=== PATIENT | female | born 1975 | race African-American/Black ===

== ENCOUNTER 2022-12-05 06:34 | Emergency (ER) | payer MEDICAID ==
[~2022-12-05] VITALS: Ht 175.3 cm; Wt 88.5 kg
[2022-12-05 06:36] VITALS: BP 170/116
[2022-12-05] MEDS ORDERED: KETOROLAC 60MG/2ML VIAL IM ONE (09:15)
[2022-12-05] MEDS ORDERED: P50 MT (11:10)
[2022-12-05] MEDS ORDERED: IBUP-2029 MT (11:10)
== END 2022-12-05 11:25 | disposition home or self-care (01) ==
LOC: ER 06:34
DX: J02.9 Acute pharyngitis, unspecified (principal); J06.9 Acute upper respiratory infection, unspecified; B00.1 Herpesviral vesicular dermatitis; I10 Essential (primary) hypertension; Z20.822 Contact with and (suspected) exposure to COVID-19; Z98.890 Other specified postprocedural states
CPT/HCPCS: 71045; 87070; 87426; 87430; 87804; 96372; 99284; C9803; J1885

== ENCOUNTER 2024-02-01 19:14 | Emergency (ER) | payer SELFPAY ==
[~2024-02-01] VITALS: Ht 175.3 cm; Wt 78.0 kg
[~2024-02-01 19:14] MED LIST: IBUP-2029 MT; P50 MT
[2024-02-01 19:16] VITALS: PULSE 86
[2024-02-01 19:27] VITALS: BP 124/94; RESP 20; TEMP 97.8; O2SAT 98
[2024-02-01] MEDS ORDERED: KETO5DRO73 LEFTEYE (20:19)
[2024-02-01] MEDS ORDERED: DIPH25TA62 MT (20:20)
[2024-02-01] MEDS: TETRACAINE 0.5% OPHTH DROPS 4ML LEFTEYE ONE (20:40)
[2024-02-01] MEDS: FLUORESCEIN SODIUM 1MG/STRIP LEFTEYE ONE (20:40)
== END 2024-02-01 20:46 | disposition home or self-care (01) ==
LOC: ER 19:14
DX: R21 Rash and other nonspecific skin eruption (principal)
CPT/HCPCS: 99283

== ENCOUNTER 2024-11-29 09:04 | Emergency (ER) | payer MEDICAID ==
[~2024-11-29] VITALS: Ht 175.3 cm; Wt 98.0 kg
[~2024-11-29 09:04] MED LIST changes: +DIPH25TA62 MT; +KETO5DRO73 LEFTEYE
[2024-11-29 09:18] VITALS: O2SAT 99
[2024-11-29] MEDS ORDERED: AMOX1TAB15 MT (09:46)
[2024-11-29] MEDS ORDERED: ACET-2708 MT (09:48)
[2024-11-29] MEDS: KETOROLAC 30MG/ML VIAL IM ONE (10:13)
[2024-11-29 10:18] VITALS: BP 126/89; PULSE 72; RESP 16; TEMP 36.33624; O2SAT 99
== END 2024-11-29 10:20 | disposition home or self-care (01) ==
LOC: ER 09:13
DX: H66.93 Otitis media, unspecified, bilateral (principal); Z79.899 Other long term (current) drug therapy
CPT/HCPCS: 99283; 81025; 96372; J1885

== ENCOUNTER 2025-05-15 16:44 | Emergency (ER) | payer SELFPAY ==
[~2025-05-15] VITALS: Ht 175.3 cm; Wt 77.0 kg
[~2025-05-15 16:44] MED LIST changes: +ACET-2708 MT; +AMOX1TAB15 MT
[2025-05-15 16:48] VITALS: O2SAT 99
[2025-05-15 16:58] VITALS: BP 142/96; PULSE 88; RESP 18; TEMP 36.7; O2SAT 98
[2025-05-15] MEDS ORDERED: IBUP-2030 MT (17:24)
[2025-05-15] MEDS ORDERED: AMOX1TAB16 MT (17:24)
== END 2025-05-15 18:03 | disposition home or self-care (01) ==
LOC: ER 16:44
DX: H66.91 Otitis media, unspecified, right ear (principal); I10 Essential (primary) hypertension; Z11.3 Encounter for screening for infections with a predominantly sexual mode of transmission; Z20.2 Contact with and (suspected) exposure to infections with a predominantly sexual mode of transmission; Z79.899 Other long term (current) drug therapy
CPT/HCPCS: 81025; 87491; 87591; 99283